=== PATIENT | male | born 1955 | race Hispanic/Latino ===

== ENCOUNTER 2017-04-09 10:10 | Emergency (ER) | payer SELFPAY ==
[~2017-04-09] VITALS: Ht 157.5 cm; Wt 68.2 kg
[2017-04-09 10:48] LABS: URINE BILIRUBIN - DIPSTICK NEGATIVE (NEGATIVE); URINE BLOOD DIPSTICK NEGATIVE (NEGATIVE); URINE CLARITY CLEAR; URINE COLOR YELLOW; URINE GLUCOSE - DIPSTICK >=1000 mg/dL (NEGATIVE); URINE KETONE NEGATIVE (NEGATIVE); URINE LEUK ESTERASE NEGATIVE (NEGATIVE); URINE NITRITE - DIPSTICK NEGATIVE (Negative); URINE PH 5.5 (4.5-8.0); URINE PROTEIN - DIPSTICK NEGATIVE (NEG-TRACE); URINE SPECIFIC GRAVITY <=1.005; URINE UROBILINOGEN - DIPSTICK 0.2 E.U./dL (0.2)
[2017-04-09 10:55] LABS: HEMATOCRIT 47.7 % (39.0-50.0); HEMOGLOBIN 17.2 g/dl (14.0-18.0); IMMATURE GRANULOCYTES 0.5 % (0.0-1.0); MEAN CELL VOLUME 85.2 fL CALC (80.0-100.0); MEAN CORPUSCULAR HGB 30.7 pG CALC (26.0-32.0); MEAN CORPUSCULAR HGB CONC 36.1 g/L CALC (32.0-36.0); NEUT# 4.98 thou/uL (1.82-7.42); RED BLOOD COUNT 5.6 mill/uL (4.70-6.10); RED CELL DISTRI WIDTH 12.3 % (11.5-15.5)
[2017-04-09 11:06] LABS: ALBUMIN 4.6 g/dL (3.2-5.0); ALKALINE PHOSPHATASE 217 u/l (38-126); ANION GAP 18 (6-22 (CALC)); BILIRUBIN, TOTAL 1.1 mg/dL (0.0-1.4); BUN 13 mg/dL (9-20); BUN/CREATININE RATIO 17 (12-20 (CALC)); CALCIUM 9.4 mg/dL (8.4-10.2); CARBON DIOXIDE 23 mmol/l (22-30); CHLORIDE 97 mmol/l (95-108); CREATININE 0.8 mg/dL (0.7-1.3); GFR > 60 ML/MIN (>=60 (CALC)); GFR FOR AFR.AMER. > 60 ML/MIN (>=60 (CALC)); POTASSIUM 4.5 mmol/l (3.5-5.1); SGOT/AST 32 u/l (17-59); SGPT/ALT 43 u/l (21-72); SODIUM 133 mmol/l (137-146); TOTAL PROTEIN 7.8 g/dL (6.3-8.2)
[2017-04-09 11:07] LABS: GLUCOSE 557 mg/dL (75-110)
[2017-04-09 11:18] LABS: MYOGLOBIN 26 ng/mL (0 - 121)
[2017-04-09] MEDS ORDERED: METFORMIN500 M2 PO (12:50)
[2017-04-09 13:47] VITALS: BP 127/89
== END 2017-04-09 13:50 | disposition home or self-care (01) | DRG 639 ==
LOC: ED 10:10
PROVIDERS: Emergency Medicine
DX: E11.65 Type 2 diabetes mellitus with hyperglycemia (principal); Z91.14 Patient's other noncompliance with medication regimen

== ENCOUNTER 2022-06-14 07:57 | Emergency (ER) | payer SELFPAY ==
[~2022-06-14] VITALS: Ht 157.5 cm; Wt 60.0 kg
[~2022-06-14 07:57] MED LIST: METFORMIN500 M2 PO
[2022-06-14 08:03] VITALS: BP 162/109
[2022-06-14 09:02] LABS: URINE BILIRUBIN - DIPSTICK NEGATIVE (NEGATIVE); URINE BLOOD DIPSTICK NEGATIVE (NEGATIVE); URINE COLOR YELLOW; URINE GLUCOSE - DIPSTICK >=1000 mg/dL (NEGATIVE); URINE KETONE NEGATIVE (NEGATIVE); URINE LEUK ESTERASE NEGATIVE (NEGATIVE); URINE PH 5.5 (4.5-8.0); URINE PROTEIN - DIPSTICK NEGATIVE (NEG-TRACE); URINE UROBILINOGEN - DIPSTICK 0.2 E.U./dL (0.2)
[2022-06-14 09:10] VITALS: BP 119/80
[2022-06-14 09:12] LABS: URINE NITRITE - DIPSTICK NEGATIVE (Negative)
[2022-06-14 09:31] VITALS: BP 130/76
[2022-06-14] MEDS ORDERED: CIPROFLOXACN500 MG PO (09:37)
[2022-06-14 10:01] VITALS: BP 137/87
== END 2022-06-14 10:10 | disposition home or self-care (01) | DRG 696 ==
LOC: ED 07:57
PROVIDERS: Emergency Medicine
DX: R36.9 Urethral discharge, unspecified (principal); S30.812A Abrasion of penis, initial encounter; B07.8 Other viral warts; E11.9 Type 2 diabetes mellitus without complications; X58.XXXA Exposure to other specified factors, initial encounter; Z20.2 Contact with and (suspected) exposure to infections with a predominantly sexual mode of transmission

== ENCOUNTER 2023-07-06 14:33 | Emergency (ER) | payer SELFPAY ==
[~2023-07-06] VITALS: Ht 157.5 cm; Wt 63.6 kg
[~2023-07-06 14:33] MED LIST changes: +CIPROFLOXACN500 MG PO
[2023-07-06 14:42] VITALS: BP 145/95
[2023-07-06 14:45] VITALS: BP 162/90
[2023-07-06] MEDS ORDERED: BACTRIM DS1 TAB PO (14:47)
[2023-07-06] MEDS ORDERED: OMNI-PAC300 MG PO (14:47)
[2023-07-06 15:01] VITALS: BP 146/80
[2023-07-06 15:22] VITALS: BP 146/80
== END 2023-07-06 15:22 | disposition home or self-care (01) | DRG 156 ==
LOC: ED 14:33
PROC: 0H91XZZ Drainage of Face Skin, External Approach (ICD-10-PCS; principal; 2023-07-06)
DX: J34.0 Abscess, furuncle and carbuncle of nose (principal); E11.9 Type 2 diabetes mellitus without complications

== ENCOUNTER 2023-07-08 19:18 | Emergency (ER) | payer SELFPAY ==
[~2023-07-08] VITALS: Ht 157.5 cm; Wt 54.0 kg
[~2023-07-08 19:18] MED LIST changes: +BACTRIM DS1 TAB PO; +OMNI-PAC300 MG PO
[2023-07-08] MEDS ORDERED: LORTAB 5/3255 MG PO (19:54)
[2023-07-08 19:58] VITALS: BP 128/85
== END 2023-07-08 20:04 | disposition home or self-care (01) | DRG 159 ==
LOC: ED 19:18
PROC: 0W933ZZ Drainage of Oral Cavity and Throat, Percutaneous Approach (ICD-10-PCS; principal; 2023-07-08)
DX: K12.2 Cellulitis and abscess of mouth (principal); E11.9 Type 2 diabetes mellitus without complications